=== PATIENT | male | born 1955 | race Caucasian/White ===

== ENCOUNTER 2017-01-29 12:07 | Outpatient (CLI) | payer MEDICARE, MEDICAID | END 2017-01-29 12:08 | disposition home or self-care (01) | DX: E11.9 Type 2 diabetes mellitus without complications (principal); D63.1 Anemia in chronic kidney disease; I10 Essential (primary) hypertension ==

== ENCOUNTER 2017-03-23 09:24 | Emergency (ER) | payer MEDICARE, MEDICAID ==
[2017-03-23 10:09] VITALS: BP 178/108
--- NOTE | 2017-03-23 10:18 | ED Physician Documentation ---
History of Present Illness - Stated complaint Stated Complaint: HIGH BP - Chief complaint Chief Complaint: General - Additonal information Additional information: hx from pt known HT on meds but he does not know the name of them or what time of day he takes them has not recently seen his PMD about BP has a new caregiver today and he/she noted high BP and wanted pt to come to the ER he statws this BP is normal for him he denies RAE CP Review of Systems Constitutional: denies: Fever Cardiac: denies: Chest pain / pressure Respiratory: denies: Dyspnea Neurologic: denies: Headache PD PAST MEDICAL HISTORY - Past Medical History Cardiovascular: Hypertension Respiratory: None, Shortness of breath Neuro: CVA, Peripheral neuropathy Endocrine/Autoimmune: Type 2 diabetes GI: GERD : Incontinence, Renal insuffiency HEENT: Other Psych: None Musculoskeletal: Hemiplegia, Gout Derm: None - Past Surgical History Past Surgical History: Yes General: Bowel surgery Cardiovascular: Other Neuro: Craniotomy HEENT: Tonsil/Adenoidectomy - Present Medications Home Medications: Ambulatory Orders Medication Instructions Recorded Confirmed Bupropion HCl [Bupropion HCl Sr] 150 mg PO BID 05/08/13 01/30/16 Metoprolol Tartrate [Lopressor] 50 mg PO BID 05/08/13 01/30/16 Ranitidine HCl 150 mg PO DAILY 05/08/13 01/30/16 traMADol [Ultram] 50 mg PO ONCE PRN 05/08/13 01/30/16 Citalopram [CeleXA] 20 mg PO DAILY 11/12/13 01/30/16 Furosemide [Lasix] 40 mg PO ONCE PRN 11/12/13 01/30/16 Allopurinol 100 mg PO DAILY 05/07/15 01/30/16 Calcium Polycarbophil [Fiber Tabs] 625 mg PO DAILY #30 tablet 05/07/15 01/30/16 Glipizide [Glipizide Xl] 10 mg PO DAILY 05/07/15 01/30/16 Nifedipine [Nifedipine Xl] 30 mg PO DAILY 05/07/15 01/30/16 Polyethylene Glycol 3350 [Miralax] 17 gm PO Q4H PRN #500 g 05/07/15 01/30/16 Potassium Bicarbonate 25 meq PO DAILY #10 tablet 05/07/15 01/30/16 [K-Effervescent] Bisacodyl Supp [Dulcolax Supp] 10 mg MA ONCE PRN #10 supp 05/09/15 01/30/16 Albuterol Sulfate [Proair Hfa 8.5 gm IH QID #1 hfa.aer.ad 12/25/15 01/30/16 Inhaler] Cetirizine [ZyrTEC] 10 mg PO DAILY #15 tablet 12/25/15 01/30/16 oxyCODONE/ACET 5/325 [Percocet 5 1 - 2 each PO Q6H PRN #20 tablet 03/31/16 mg/325 mg] Magnesium Oxide [Mag Ox] 400 mg PO DAILY #10 tablet 04/18/16 Cephalexin [Keflex] 500 mg PO QID #40 capsule 05/09/16 - Allergies Allergies/Adverse Reactions: Allergies Allergy/AdvReac Type Severity Reaction Status Date / Time Sulfa (Sulfonamide Allergy Mild Itching Verified 03/23/17 09:35 Antibiotics) egg Allergy Hives Verified 03/23/17 09:35 - Social History Does the pt smoke?: No Smoking Status: Never smoker Does the pt drink ETOH?: Yes Does the pt have substance abuse?: Yes - Immunizations Immunizations are current?: Yes - POLST Patient has POLST: No PD ED PE NORMAL - Vitals Vital signs reviewed: Yes - General General: Alert and oriented X 3 - Neck Neck: Supple, no meningeal sign - Cardiac Cardiac: RRR - Respiratory Respiratory: No respiratory distress, Clear bilaterally - Neuro Neuro: Alert and oriented X 3, Other (pre-existing L hemiplegia) Results - Vitals Vitals: Vital Signs - 24 hr 03/23/17 03/23/17 09:33 10:08 Temperature 36.8 C Heart Rate 69 Respiratory 16 Rate Blood Pressure 200/114 H 178/108 H O2 Saturation 99 Oxygen O2 Source [With Activity] Room air O2 Source Room air PD MEDICAL DECISION MAKING - ED course ED course: asymptomatic HTN with hx same rpt BP in ER improved no need for emergent intervention will dc to keep a log of BP and diff times of day and fup MD for further management Departure - Departure Disposition: 01 Home, Self Care Clinical Impression: HTN (hypertension) Qualifiers: Hypertension type: essential hypertension Qualified Code(s): I10 - Essential ( primary) hypertension Condition: Fair Instructions: ED Hypertension Conf Out Of Control Follow-Up: Gravatt,Jhonny H, MD [Primary Care Provider] - Comments: Keep a log of your blood pressures at different times of the day and follow up with your PMD to discuss medication management Please always bring a medication list or your medication bottles with you to your doctors appointments and hospital visits Return if worse (headache, chest pain, new numbness or weakness etc)
== END 2017-03-23 10:30 | disposition home or self-care (01) ==
LOC: ED 09:24
DX: I10 Essential (primary) hypertension (principal); Z86.73 Personal history of transient ischemic attack (TIA), and cerebral infarction without residual deficits; E11.42 Type 2 diabetes mellitus with diabetic polyneuropathy; M10.9 Gout, unspecified
CPT/HCPCS: 99283

== ENCOUNTER 2017-05-14 08:41 | Outpatient (CLI) | payer MEDICARE, MEDICAID ==
[2017-05-14 09:05] LABS: HCT - HEMATOCRIT 37.8 % (42.0-52.0); HGB - HEMOGLOBIN 12.6 g/dL (14.0-18.0); MEAN CORPUSCULAR HEMOGLOBIN 28.6 pg (27.0-31.0); MEAN CORPUSCULAR HGB CONC 33.3 g/dL (32.0-36.0); MEAN CORPUSCULAR VOLUME 85.7 fL (80.0-94.0); MEAN PLATELET VOLUME 8.6 fL (7.4-11.4); RED BLOOD COUNT 4.41 10^6/uL (4.70-6.10); RED CELL DISTRIBUTION WIDTH 14.3 % (12.0-15.0); WHITE BLOOD COUNT 6.8 x10^3/uL (4.8-10.8)
[2017-05-14 09:17] LABS: CREATININE 1.8 mg/dL (0.6-1.2); POTASSIUM 4.4 mmol/L (3.5-5.0)
[2017-05-14 09:20] LABS: PHOSPHORUS 4.2 mg/dL (2.5-4.6); URIC ACID 5.7 mg/dL (2.6-7.2)
[2017-05-14 09:45] LABS: HEMOGLOBIN A1C 0.66 g/dL
== END 2017-05-14 08:42 | disposition home or self-care (01) ==
LOC: LAB 08:41
PROVIDERS: ATTEND Family Medicine
DX: E11.9 Type 2 diabetes mellitus without complications (principal); D70.9 Neutropenia, unspecified; I10 Essential (primary) hypertension; N05.9 Unspecified nephritic syndrome with unspecified morphologic changes; M10.00 Idiopathic gout, unspecified site; E83.30 Disorder of phosphorus metabolism, unspecified; N25.81 Secondary hyperparathyroidism of renal origin
CPT/HCPCS: 36415; 80048; 83036; 83970; 84100; 84550

== ENCOUNTER 2017-06-22 09:10 | Emergency (ER) | payer MEDICARE, MEDICAID ==
[2017-06-22 09:23] VITALS: BP 171/96
--- NOTE | 2017-06-22 10:18 | ED Physician Documentation ---
PD HPI SKIN - Stated complaint Stated Complaint: BLISTER ON SKIN - Chief complaint Chief Complaint: Wound - History obtained from History obtained from: Patient, Caregiver - History of Present Illness Timing - onset: How many days ago (4) Timing - duration: Days (4) Timing - details: Gradual onset, Still present Location: Back Quality / character: Painful, Burning, Vesicular Associated symptoms: No: Fever, Myalgias, Joint pain, Headache, Facial swelling , Dyspnea, Abd pain, N/V/D, Urinary sx Similar symptoms before: Has not had sx before Recently seen: Not recently seen - Additional information Additional information: 61-year-old male with a history of CVA and type 2 diabetes has developed a painful area on the right flank area that is blistered and has kept him awake at night. Review of Systems Constitutional: denies: Fever Nose: reports: Congestion Throat: denies: Sore throat Cardiac: denies: Chest pain / pressure Respiratory: denies: Dyspnea, Cough GI: denies: Nausea, Vomiting Skin: reports: Rash, Lesions Musculoskeletal: reports: Back pain. denies: Neck pain, Extremity pain PD PAST MEDICAL HISTORY - Past Medical History Past Medical History: Yes Cardiovascular: Hypertension Respiratory: None, Shortness of breath Neuro: CVA, Peripheral neuropathy Endocrine/Autoimmune: Type 2 diabetes GI: GERD : Incontinence, Renal insuffiency HEENT: Other Psych: None Musculoskeletal: Hemiplegia, Gout Derm: None - Past Surgical History Past Surgical History: Yes General: Bowel surgery Cardiovascular: Other Neuro: Craniotomy HEENT: Tonsil/Adenoidectomy - Present Medications Home Medications: Ambulatory Orders Medication Instructions Recorded Confirmed Bupropion HCl [Bupropion HCl Sr] 150 mg PO BID 05/08/13 03/23/17 Metoprolol Tartrate [Lopressor] 50 mg PO BID 05/08/13 03/23/17 Ranitidine HCl 150 mg PO DAILY 05/08/13 03/23/17 Citalopram [CeleXA] 20 mg PO DAILY 11/12/13 03/23/17 Allopurinol 100 mg PO DAILY 05/07/15 03/23/17 Calcium Polycarbophil [Fiber Tabs] 625 mg PO DAILY #30 tablet 05/07/15 01/30/16 Glipizide [Glipizide Xl] 10 mg PO DAILY 05/07/15 03/23/17 Nifedipine [Nifedipine Xl] 60 mg PO DAILY 05/07/15 03/23/17 Polyethylene Glycol 3350 [Miralax] 17 gm PO Q4H PRN #500 g 05/07/15 01/30/16 Bisacodyl Supp [Dulcolax Supp] 10 mg [place] ONCE PRN #10 supp 05/09/15 01/30/16 Cetirizine [ZyrTEC] 10 mg PO DAILY #15 tablet 12/25/15 03/23/17 Magnesium Oxide [Mag Ox] 400 mg PO DAILY #10 tablet 04/18/16 Atorvastatin Calcium 20 mg PO DAILY 03/23/17 03/23/17 Lisinopril 10 mg PO DAILY 03/23/17 03/23/17 Oxybutynin Chloride 5 mg PO BID PRN 03/23/17 03/23/17 Acyclovir 800 mg PO ACHS #35 tablet 06/22/17 Oxycodone HCl/Acetaminophen 1 each PO Q6HR PRN #20 tablet 06/22/17 [Percocet 5-325 mg Tablet] - Allergies Allergies/Adverse Reactions: Allergies Allergy/AdvReac Type Severity Reaction Status Date / Time Sulfa (Sulfonamide Allergy Mild Itching Verified 03/23/17 09:35 Antibiotics) egg Allergy Hives Verified 03/23/17 09:35 - Social History Does the pt smoke?: No Smoking Status: Never smoker Does the pt drink ETOH?: Yes Does the pt have substance abuse?: Yes - Immunizations Immunizations are current?: Yes - POLST Patient has POLST: No PD ED PE NORMAL - Vitals Vital signs reviewed: Yes (hypertensive) - General General: No acute distress, Well developed/nourished - HEENT HEENT: Atraumatic - Respiratory Respiratory: No respiratory distress - Back Back: No CVA TTP, No spinal TTP - Derm Derm: Normal color, Warm and dry, Other (There are multiple vesiculations over the right back extending in a dermatome around to the front. They do not appear superinfected at this time. ) Results - Vitals Vitals: Vital Signs - 24 hr 06/22/17 09:19 Temperature 36.6 C Heart Rate 62 Respiratory 20 Rate Blood Pressure 171/96 H O2 Saturation 64 L Oxygen O2 Source [With Activity] Room air O2 Source Room air PD MEDICAL DECISION MAKING - ED course Complexity details: considered differential, d/w patient, d/w family ED course: 61-year-old male with a history of type 2 diabetes and CVA has developed blisters on his back consistent with acute zoster. Departure - Departure Disposition: 01 Home, Self Care Clinical Impression: Shingles rash Qualifiers: Herpes zoster complications: without complications Qualified Code(s): B02.9 - Zoster without complications Instructions: ED Shingles Follow-Up: Jhonny Kruse MD [Primary Care Provider] - Prescriptions: Oxycodone HCl/Acetaminophen [Percocet 5-325 mg Tablet] 1 each PO Q6HR PRN #20 tablet PRN Reason: Pain Acyclovir 800 mg PO ACHS #35 tablet
== END 2017-06-22 10:52 | disposition home or self-care (01) ==
LOC: ED 09:10
DX: B02.9 Zoster without complications (principal); I69.359 Hemiplegia and hemiparesis following cerebral infarction affecting unspecified side; I10 Essential (primary) hypertension; E11.42 Type 2 diabetes mellitus with diabetic polyneuropathy; Z79.84 Long term (current) use of oral hypoglycemic drugs; K21.9 Gastro-esophageal reflux disease without esophagitis; M10.9 Gout, unspecified
CPT/HCPCS: 99283

== ENCOUNTER 2017-07-09 09:54 | Emergency (ER) | payer MEDICARE, MEDICAID ==
[2017-07-09 10:17] VITALS: BP 168/93
--- NOTE | 2017-07-09 12:05 | ED Physician Documentation ---
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 and dec sensation also lymphedema and diabetes scratched his LLE and now has some abrasions which have gotten infected no fever otherwise well Review of Systems Constitutional: denies: Fever Respiratory: denies: Cough GI: denies: Vomiting, Diarrhea Skin: reports: Rash, Abrasion (s) Neurologic: reports: Focal weakness (from prior TBI), Numbness (from prior TBI) Immunocompromised: denies: Immunocompromised PD PAST MEDICAL HISTORY - Past Medical History Cardiovascular: Hypertension Respiratory: None, Shortness of breath Neuro: CVA, Peripheral neuropathy Endocrine/Autoimmune: Type 2 diabetes GI: GERD : Incontinence, Renal insuffiency HEENT: Other Psych: None Musculoskeletal: Hemiplegia, Gout Derm: None - Past Surgical History Past Surgical History: Yes General: Bowel surgery Cardiovascular: Other Neuro: Craniotomy HEENT: Tonsil/Adenoidectomy - Present Medications Home Medications: Ambulatory Orders Medication Instructions Recorded Confirmed Bupropion HCl [Bupropion HCl Sr] 150 mg PO BID 05/08/13 03/23/17 Metoprolol Tartrate [Lopressor] 50 mg PO BID 05/08/13 03/23/17 Ranitidine HCl 150 mg PO DAILY 05/08/13 03/23/17 Citalopram [CeleXA] 20 mg PO DAILY 11/12/13 03/23/17 Allopurinol 100 mg PO DAILY 05/07/15 03/23/17 Calcium Polycarbophil [Fiber Tabs] 625 mg PO DAILY #30 tablet 05/07/15 01/30/16 Glipizide [Glipizide Xl] 10 mg PO DAILY 05/07/15 03/23/17 Nifedipine [Nifedipine Xl] 60 mg PO DAILY 05/07/15 03/23/17 Polyethylene Glycol 3350 [Miralax] 17 gm PO Q4H PRN #500 g 05/07/15 01/30/16 Bisacodyl Supp [Dulcolax Supp] 10 mg [place] ONCE PRN #10 supp 05/09/15 01/30/16 Cetirizine [ZyrTEC] 10 mg PO DAILY #15 tablet 12/25/15 03/23/17 Magnesium Oxide [Mag Ox] 400 mg PO DAILY #10 tablet 04/18/16 Atorvastatin Calcium 20 mg PO DAILY 03/23/17 03/23/17 Lisinopril 10 mg PO DAILY 03/23/17 03/23/17 Oxybutynin Chloride 5 mg PO BID PRN 03/23/17 03/23/17 Acyclovir 800 mg PO ACHS #35 tablet 06/22/17 Oxycodone HCl/Acetaminophen 1 each PO Q6HR PRN #20 tablet 06/22/17 [Percocet 5-325 mg Tablet] Cephalexin [Keflex] 500 mg PO Q6H #28 capsule 07/09/17 - Allergies Allergies/Adverse Reactions: Allergies Allergy/AdvReac Type Severity Reaction Status Date / Time Sulfa (Sulfonamide Allergy Mild Itching Verified 03/23/17 09:35 Antibiotics) egg Allergy Hives Verified 03/23/17 09:35 - Social History Does the pt smoke?: No Smoking Status: Never smoker Does the pt drink ETOH?: Yes Does the pt have substance abuse?: Yes - Immunizations Immunizations are current?: Yes - POLST Patient has POLST: No PD ED PE NORMAL - Vitals Vital signs reviewed: Yes - General General: Alert and oriented X 3 - HEENT HEENT: Atraumatic - Neck Neck: Supple, no meningeal sign - Cardiac Cardiac: RRR - Respiratory Respiratory: No respiratory distress, Clear bilaterally - Extremities Extremities: Other (mallory LE edema, LLE with abrasion and surrounding cellulitis, no crepitus, no necrosis, no bullae, small serous dc whcih was vultures, + pedal pulse, motor nd sensation chronically impaired) Results - Vitals Vitals: Vital Signs - 24 hr 07/09/17 10:13 Temperature 37 C Heart Rate 58 L Respiratory 18 Rate Blood Pressure 168/93 H O2 Saturation 99 Oxygen O2 Source [With Activity] Room air O2 Source Room air PD MEDICAL DECISION MAKING - ED course ED course: no hx MRSA, baseline renal insuff, and allergic to sulfa - for now will start tx with keflex Departure - Departure Disposition: 01 Home, Self Care Clinical Impression: Cellulitis Qualifiers: Site of cellulitis: extremity Site of cellulitis of extremity: lower extremity Laterality: left Qualified Code(s): L03.116 - Cellulitis of left lower limb Condition: Good Instructions: ED Infec Skin Cellulitis Prescriptions: Cephalexin [Keflex] 500 mg PO Q6H #28 capsule Comments: Please come back to the ER tomorrow for a recheck. Your diabetes and lymphedema will make this infection more difficult to cure - if you do not get better with antibiotic pills you may need to be admitted for IV antibiotics And please get your blood pressure rechecked - it was high today
[2017-07-09] MEDS: CEPHALEXIN 250 MG CAPSULE PO STA (12:24)
[2017-07-09] MEDS ORDERED: CEPHALEXIN 250 MG CAPSULE PO ONE (12:26)
== END 2017-07-09 12:15 | disposition home or self-care (01) ==
LOC: ED 09:54
DX: S80.812A Abrasion, left lower leg, initial encounter (principal); L03.116 Cellulitis of left lower limb; X58.XXXA Exposure to other specified factors, initial encounter; E11.42 Type 2 diabetes mellitus with diabetic polyneuropathy; I10 Essential (primary) hypertension; K21.9 Gastro-esophageal reflux disease without esophagitis; M10.9 Gout, unspecified; I89.0 Lymphedema, not elsewhere classified; I69.354 Hemiplegia and hemiparesis following cerebral infarction affecting left non-dominant side
CPT/HCPCS: 87070; 87205; 99283; A9270

== ENCOUNTER 2017-07-11 08:57 | Emergency (ER) | payer MEDICARE, MEDICAID ==
[2017-07-11 09:10] VITALS: BP 135/86
--- NOTE | 2017-07-11 11:11 | ED Physician Documentation ---
History of Present Illness - Stated complaint Stated Complaint: LEG WOUND - Chief complaint Chief Complaint: Ext Problem - Additonal information Additional information: 61-year-old man diagnosed with cellulitis of the left lower extremity couple days ago placed on Keflex told to come back for wound check yesterday. He missed this appointment yesterday and was late in getting his antibiotics but is now currently taking antibiotics and believes the wound is doing better however he is returning as instructed. Review of systems: For pertinent positive and negatives in the review of systems please see the history of present illness, otherwise all other systems have been reviewed and are negative. Dragon disclaimer: Parts of this medical record were created using voice recognition technology. Because of the inherent limitations of this system, occasional same sounding word substitutions do occur and persist despite proofreading. Please read the document for context. Review of Systems Constitutional: denies: Fever, Chills, Myalgias PD PAST MEDICAL HISTORY - Past Medical History Cardiovascular: Hypertension Respiratory: None, Shortness of breath Neuro: CVA, Peripheral neuropathy Endocrine/Autoimmune: Type 2 diabetes GI: GERD : Incontinence, Renal insuffiency HEENT: Other Psych: None Musculoskeletal: Hemiplegia, Gout Derm: None - Past Surgical History Past Surgical History: Yes General: Bowel surgery Cardiovascular: Other Neuro: Craniotomy HEENT: Tonsil/Adenoidectomy - Present Medications Home Medications: Ambulatory Orders Medication Instructions Recorded Confirmed Bupropion HCl [Bupropion HCl Sr] 150 mg PO BID 05/08/13 07/11/17 Metoprolol Tartrate [Lopressor] 50 mg PO BID 05/08/13 07/11/17 Ranitidine HCl 150 mg PO DAILY 05/08/13 07/11/17 Citalopram [CeleXA] 20 mg PO DAILY 11/12/13 07/11/17 Allopurinol 100 mg PO DAILY 05/07/15 07/11/17 Calcium Polycarbophil [Fiber Tabs] 625 mg PO DAILY #30 tablet 05/07/15 07/11/17 Glipizide [Glipizide Xl] 10 mg PO DAILY 05/07/15 07/11/17 Nifedipine [Nifedipine Xl] 60 mg PO DAILY 05/07/15 07/11/17 Polyethylene Glycol 3350 [Miralax] 17 gm PO Q4H PRN #500 g 05/07/15 07/11/17 Bisacodyl Supp [Dulcolax Supp] 10 mg [place] ONCE PRN #10 supp 05/09/15 07/11/17 Cetirizine [ZyrTEC] 10 mg PO DAILY #15 tablet 12/25/15 07/11/17 Magnesium Oxide [Mag Ox] 400 mg PO DAILY #10 tablet 04/18/16 07/11/17 Atorvastatin Calcium 20 mg PO DAILY 03/23/17 07/11/17 Lisinopril 10 mg PO DAILY 03/23/17 07/11/17 Oxybutynin Chloride 5 mg PO BID PRN 03/23/17 07/11/17 Acyclovir 800 mg PO ACHS #35 tablet 06/22/17 07/11/17 Oxycodone HCl/Acetaminophen 1 each PO Q6HR PRN #20 tablet 06/22/17 07/11/17 [Percocet 5-325 mg Tablet] Cephalexin [Keflex] 500 mg PO Q6H #28 capsule 07/09/17 07/11/17 - Allergies Allergies/Adverse Reactions: Allergies Allergy/AdvReac Type Severity Reaction Status Date / Time Sulfa (Sulfonamide Allergy Mild Itching Verified 03/23/17 09:35 Antibiotics) egg Allergy Hives Verified 03/23/17 09:35 - Social History Does the pt smoke?: No Smoking Status: Never smoker Does the pt drink ETOH?: Yes Does the pt have substance abuse?: Yes - Immunizations Immunizations are current?: Yes - POLST Patient has POLST: No PD ED PE NORMAL - Vitals Vital signs reviewed: Yes - General General: Alert and oriented X 3, No acute distress, Well developed/nourished - Extremities Extremities: Other (Brawny edema left lower extremity. Mild erythema and a small wound present. No evidence of any significant cellulitis or abscess.) Results - Vitals Vitals: Vital Signs - 24 hr 07/11/17 09:01 Temperature 36.0 C L Heart Rate 51 L Respiratory 14 Rate Blood Pressure 135/86 H O2 Saturation 99 Oxygen O2 Source [With Activity] Room air O2 Source Room air PD MEDICAL DECISION MAKING - ED course Complexity details: reviewed old records, reviewed results, re-evaluated patient , d/w family ED course: The patient's cellulitis is minimal. He says it looks better. There is nothing concerning on my examination. I have asked him to continue the Keflex as previously prescribed. Disposition: To home Clinical impression: 1. Cellulitis left lower extremity-doing well Departure - Departure Disposition: Home, Self Care Clinical Impression: Cellulitis of leg without foot Instructions: ED Infec Skin Cellulitis
--- NOTE | 2017-07-11 22:16 | ED Physician Documentation ---
ED Addendum - Addendum Addendum: 07/11/17 22:15 pt returned for recheck as requested - chart accessed for follow up and educational purposes
== END 2017-07-11 11:11 | disposition home or self-care (01) ==
LOC: ED 08:57
DX: L03.116 Cellulitis of left lower limb (principal); G81.90 Hemiplegia, unspecified affecting unspecified side; M10.9 Gout, unspecified; I10 Essential (primary) hypertension; E11.42 Type 2 diabetes mellitus with diabetic polyneuropathy; Z86.73 Personal history of transient ischemic attack (TIA), and cerebral infarction without residual deficits
CPT/HCPCS: 99282; 99283

== ENCOUNTER 2017-08-27 08:49 | Outpatient (CLI) | payer MEDICARE, MEDICAID ==
[2017-08-27 09:28] LABS: CALCIUM 8.9 mg/dL (8.5-10.3); CREATININE 2.5 mg/dL (0.6-1.2)
[2017-08-27 09:51] LABS: HEMOGLOBIN A1C 0.72 g/dL
== END 2017-08-27 08:50 | disposition home or self-care (01) ==
LOC: LAB 08:49
PROVIDERS: ATTEND Family Medicine
DX: E11.9 Type 2 diabetes mellitus without complications (principal); I10 Essential (primary) hypertension
CPT/HCPCS: 36415; 80048; 83036

== ENCOUNTER 2017-08-28 11:47 | Outpatient (CLI) | payer MEDICARE, MEDICAID ==
[2017-08-28 12:14] LABS: CREATININE 2.5 mg/dL (0.6-1.2)
== END 2017-08-28 11:48 | disposition home or self-care (01) ==
LOC: LAB 11:47
PROVIDERS: ATTEND Internal Medicine Nephrology
DX: N05.9 Unspecified nephritic syndrome with unspecified morphologic changes (principal)
CPT/HCPCS: 36415; 82565

== ENCOUNTER 2017-09-18 15:53 | Outpatient (CLI) | payer MEDICARE, MEDICAID ==
[2017-09-18 17:00] LABS: CALCIUM 8.7 mg/dL (8.5-10.3); CREATININE 2.1 mg/dL (0.6-1.2); POTASSIUM 3.2 mmol/L (3.5-5.0)
== END 2017-09-18 15:54 | disposition home or self-care (01) ==
LOC: LAB 15:53
PROVIDERS: ATTEND Internal Medicine Nephrology
DX: N05.9 Unspecified nephritic syndrome with unspecified morphologic changes (principal)
CPT/HCPCS: 36415; 80048

== ENCOUNTER 2017-10-22 09:49 | Outpatient (CLI) | payer MEDICARE, MEDICAID ==
[2017-10-22 10:21] LABS: CALCIUM 9.4 mg/dL (8.5-10.3); CREATININE 2.4 mg/dL (0.6-1.2); POTASSIUM 3.9 mmol/L (3.5-5.0)
== END 2017-10-22 09:50 | disposition home or self-care (01) ==
LOC: LAB 09:49
PROVIDERS: ATTEND Internal Medicine Nephrology
DX: N05.9 Unspecified nephritic syndrome with unspecified morphologic changes (principal)
CPT/HCPCS: 36415; 80048

== ENCOUNTER 2017-12-16 08:24 | Outpatient (CLI) | payer MEDICARE, MEDICAID | END 2017-12-16 08:25 | disposition critical access hospital (66) | LOC: EMS 08:24 | PROVIDERS: ATTEND Surgery | DX: R40.20 Unspecified coma (principal); R73.09 Other abnormal glucose | CPT/HCPCS: A0425; A0429 ==

== ENCOUNTER 2017-12-16 08:25 | Emergency (ER) | payer OTHER ==
[2017-12-16] MEDS ORDERED: SODIUM CHLORIDE 0.9% 1,000 ML IV ONE (08:36)
--- NOTE | 2017-12-16 08:38 | ED Physician Documentation ---
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 Unable to obtain: Unresponsive PD PAST MEDICAL HISTORY - Present Medications Home Medications: Ambulatory Orders Medication Instructions Recorded Confirmed Bupropion HCl [Bupropion HCl Sr] 150 mg PO BID 05/08/13 07/11/17 Metoprolol Tartrate [Lopressor] 50 mg PO BID 05/08/13 07/11/17 raNITIdine HCl [Ranitidine HCl] 150 mg PO DAILY 05/08/13 07/11/17 Citalopram [CeleXA] 20 mg PO DAILY 11/12/13 07/11/17 Allopurinol 100 mg PO DAILY 05/07/15 07/11/17 Calcium Polycarbophil [Fiber Tabs] 625 mg PO DAILY #30 tablet 05/07/15 07/11/17 Glipizide [Glipizide Xl] 10 mg PO DAILY 05/07/15 07/11/17 Nifedipine [Nifedipine Xl] 60 mg PO DAILY 05/07/15 07/11/17 Polyethylene Glycol 3350 [Miralax] 17 gm PO Q4H PRN #500 g 05/07/15 07/11/17 Bisacodyl Supp [Dulcolax Supp] 10 mg SD ONCE PRN #10 supp 05/09/15 07/11/17 Cetirizine [ZyrTEC] 10 mg PO DAILY #15 tablet 12/25/15 07/11/17 Magnesium Oxide [Mag Ox] 400 mg PO DAILY #10 tablet 04/18/16 07/11/17 Atorvastatin Calcium 20 mg PO DAILY 03/23/17 07/11/17 Lisinopril 10 mg PO DAILY 03/23/17 07/11/17 Oxybutynin Chloride 5 mg PO BID PRN 03/23/17 07/11/17 Acyclovir 800 mg PO ACHS #35 tablet 06/22/17 07/11/17 Oxycodone HCl/Acetaminophen 1 each PO Q6HR PRN #20 tablet 06/22/17 07/11/17 [Percocet 5-325 mg Tablet] Cephalexin [Keflex] 500 mg PO Q6H #28 capsule 07/09/17 07/11/17 Allopurinol 100 mg PO 12/16/17 Atorvastatin Calcium 12/16/17 Bupropion HCl [Bupropion HCl Sr] 150 mg PO 12/16/17 Citalopram Hydrobromide 20 mg PO 12/16/17 [Citalopram HBr] Furosemide 20 mg PO 12/16/17 Glipizide [Glipizide ER] 5 mg PO 12/16/17 Metoprolol Succinate 50 mg PO 12/16/17 Nifedical Xl 12/16/17 12/16/17 Potassium Chloride 40 meq PO 12/16/17 12/16/17 Sitagliptin Phosphate [Januvia] 25 mg PO 12/16/17 Tramadol HCl [Ultram] 50 mg PO 12/16/17 raNITIdine [Zantac] 150 mg PO DAILY 12/16/17 12/16/17 - Allergies Allergies/Adverse Reactions: Allergies Allergy/AdvReac Type Severity Reaction Status Date / Time Sulfa (Sulfonamide Allergy Mild Itching Verified 12/16/17 09:26 Antibiotics) egg Allergy Hives Verified 12/16/17 09:26 PD ED PE NORMAL - Vitals Vital signs reviewed: Yes (tachy hypertensive afebrile) - General General: No: Alert and oriented X 3 (unresponsive to voice and pain, breathing spont) - HEENT HEENT: Other (pupils 7 slowly reactive to light, L gaze deviation). No: Atraumatic (skull defect R protestant c/w prior trauma or crani) - Neck Neck: No bony TTP (but altered) - Cardiac Cardiac: RRR (tachy) - Respiratory Respiratory: No respiratory distress, Clear bilaterally - Abdomen Abdomen: Soft, Non tender, Non distended - Derm Derm: Normal color - Extremities Extremities: No deformity - Neuro Neuro: Other (pt unresponsive to voice, withdraws both feet from pain, does not responf or move arms in response to pain, L arm seems contacted in to body). No : Alert and oriented X 3 Eye Opening: None Motor: Withdraws to Pain Verbal: None GCS Score: 6 Results - Vitals Vitals: Vital Signs - 24 hr 12/16/17 12/16/17 12/16/17 08:30 09:00 09:54 Temperature 36.4 C L Heart Rate 114 H 107 H 112 H Respiratory 24 25 H 24 Rate Blood Pressure 180/107 H 209/118 H 230/129 H O2 Saturation 96 100 98 12/16/17 12/16/17 12/16/17 10:05 10:10 10:16 Temperature Heart Rate 117 H 128 H 92 Respiratory 14 25 H Rate Blood Pressure 248/130 H 236/143 H O2 Saturation 100 100 12/16/17 12/16/17 12/16/17 10:25 10:30 10:35 Temperature Heart Rate 98 90 92 Respiratory 14 14 14 Rate Blood Pressure 116/73 107/78 108/77 O2 Saturation 100 100 100 12/16/17 12/16/17 10:40 10:45 Temperature Heart Rate 90 93 Respiratory 14 14 Rate Blood Pressure 131/94 H 145/96 H O2 Saturation 100 100 Oxygen O2 Source [] Room air O2 Source Mechanical ventilator - EKG (time done) 0840 Rate: Rate (enter#) Rhythm: Sinus tachycardia [place]: Normal Ischemia: Other (marked ST depression across all precordial leads except V1 with TWI lateral) Compare to prior EKG: Old EKG unavailable - Labs Labs: Laboratory Tests 12/16/17 12/16/17 12/16/17 08:40 08:40 08:40 WBC 25.5 H RBC 4.91 Hgb 14.2 Hct 42.8 MCV 87.2 MCH 28.9 MCHC 33.1 RDW 14.5 Plt Count 223 MPV 9.9 Neut # 23.6 H Lymph # 0.5 L Calloway # 1.3 H Eos # 0.0 Baso # 0.1 Absolute Nucleated RBC 0.02 Nucleated RBC % 0.1 Manual Slide Review Indicated RBC Morph Micro Appear 2+ ANISOCYTOSIS PT 11.9 INR 1.1 Sodium 134 L Potassium 3.6 Chloride 95 L Carbon Dioxide 18 L Anion Gap 21.0 H BUN 89 H* Creatinine 6.3 H Estimated GFR (MDRD) 9 L Glucose 400 H Lactic Acid Calcium 9.9 Total Bilirubin 0.7 AST 38 ALT 24 Alkaline Phosphatase 80 Ammonia CK-MB (CK-2) Troponin I Total Protein 8.0 Albumin 4.2 Globulin 3.8 Albumin/Globulin Ratio 1.1 Lipase 16 L TSH Urine Color Urine Clarity Urine pH Ur Specific Leupp Urine Protein Urine Glucose (UA) Urine Ketones Urine Occult Blood Urine Nitrite Urine Bilirubin Urine Urobilinogen Ur Leukocyte Esterase Urine RBC Urine WBC Ur Squamous Epith Cells Urine Bacteria Ur Microscopic Review Urine Culture Comments Salicylates < 6.0 Urine Opiates Screen Ur Oxycodone Screen Urine Methadone Screen Ur Propoxyphene Screen Acetaminophen < 10 L Ur Barbiturates Screen Ur Tricyclics Screen Ur Phencyclidine Scrn Ur Amphetamine Screen U Methamphetamines Scrn U Benzodiazepines Scrn Urine Cocaine Screen U Cannabinoids Screen Ethyl Alcohol < 5.0 Influenza A (Rapid) Influenza B (Rapid) Influenza Types A,B Ag 12/16/17 12/16/17 12/16/17 08:40 08:40 08:40 WBC RBC Hgb Hct MCV MCH MCHC RDW Plt Count MPV Neut # Lymph # Calloway # Eos # Baso # Absolute Nucleated RBC Nucleated RBC % Manual Slide Review RBC Morph Micro Appear PT INR Sodium Potassium Chloride Carbon Dioxide Anion Gap BUN Creatinine Estimated GFR (MDRD) Glucose Lactic Acid 2.6 H Calcium Total Bilirubin AST ALT Alkaline Phosphatase Ammonia CK-MB (CK-2) 21.2 H Troponin I 0.42 Total Protein Albumin Globulin Albumin/Globulin Ratio Lipase TSH 2.28 Urine Color Urine Clarity Urine pH Ur Specific Leupp Urine Protein Urine Glucose (UA) Urine Ketones Urine Occult Blood Urine Nitrite Urine Bilirubin Urine Urobilinogen Ur Leukocyte Esterase Urine RBC Urine WBC Ur Squamous Epith Cells Urine Bacteria Ur Microscopic Review Urine Culture Comments Salicylates Urine Opiates Screen Ur Oxycodone Screen Urine Methadone Screen Ur Propoxyphene Screen Acetaminophen Ur Barbiturates Screen Ur Tricyclics Screen Ur Phencyclidine Scrn Ur Amphetamine Screen U Methamphetamines Scrn U Benzodiazepines Scrn Urine Cocaine Screen U Cannabinoids Screen Ethyl Alcohol Influenza A (Rapid) Influenza B (Rapid) Influenza Types A,B Ag 12/16/17 12/16/17 12/16/17 08:45 08:45 09:16 WBC RBC Hgb Hct MCV MCH MCHC RDW Plt Count MPV Neut # Lymph # Calloway # Eos # Baso # Absolute Nucleated RBC Nucleated RBC % Manual Slide Review RBC Morph Micro Appear PT INR Sodium Potassium Chloride Carbon Dioxide Anion Gap BUN Creatinine Estimated GFR (MDRD) Glucose Lactic Acid Calcium Total Bilirubin AST ALT Alkaline Phosphatase Ammonia 12.2 CK-MB (CK-2) Troponin I Total Protein Albumin Globulin Albumin/Globulin Ratio Lipase TSH Urine Color BROWN Urine Clarity CLOUDY Urine pH 7.0 Ur Specific Leupp 1.020 Urine Protein >=300 Urine Glucose (UA) 100 H Urine Ketones NEGATIVE Urine Occult Blood LARGE H Urine Nitrite NEGATIVE Urine Bilirubin NEGATIVE Urine Urobilinogen 0.2 (NORMAL) Ur Leukocyte Esterase NEGATIVE Urine RBC TNTC H Urine WBC 0-3 Ur Squamous Epith Cells NONE SEEN Urine Bacteria Moderate H Ur Microscopic Review INDICATED Urine Culture Comments INDICATED Salicylates Urine Opiates Screen NEGATIVE Ur Oxycodone Screen NEGATIVE Urine Methadone Screen NEGATIVE Ur Propoxyphene Screen NEGATIVE Acetaminophen Ur Barbiturates Screen NEGATIVE Ur Tricyclics Screen NEGATIVE Ur Phencyclidine Scrn NEGATIVE Ur Amphetamine Screen NEGATIVE U Methamphetamines Scrn NEGATIVE U Benzodiazepines Scrn NEGATIVE Urine Cocaine Screen NEGATIVE U Cannabinoids Screen NEGATIVE Ethyl Alcohol Influenza A (Rapid) Negative Influenza B (Rapid) Negative Influenza Types A,B Ag - - Rads (name of study) CTH Radiology: See rad report (R basal ganglia and caudate parenchymal hemorrhage with extensive intraventricular extent, no sig shift or herniation noted) CT CS Radiology: See rad report (no acute fx dislocation) CT AP Radiology: See rad report (no free air, diffuse marked distension of colon without evidence of obstrutcion, marked bladder distension with hydro) CXR Radiology: See rad report (ET in place, NG does not look deep enough - will advance) Procedures - Intubation Provider: Emergency physician Medications: Etomidate, Succinylcholine Blade: Seven Tube: Size-enter number (7.5), Cuffed Route: Oral Confirmation: Direct visualization, Bilateral breath sounds, No abdominal breath sound, End tidal CO2, Pulse ox, Chest xray Complications: No compications PD MEDICAL DECISION MAKING - ED course ED course: large bleed on CT POLST states full code intubated with RSI will transfer to [facility] spoke to EMP Dr Solares who accepts and rec keppra 1 g, contol BP, mannitol if herniation MOP arrives pt has prior spont bleed txed at [facility] was 2/2 uncontrolled BP and DM also he is a drinker BP continues to be high - gave labetolol for BP of >230/129 - single dose dropped BP precipitously -no further doses to be given vec and versed for sedation - propofol would be nice as would dec BP too but allergic to eggs UA + bacteria but no WBC leuk est or nitrates so unlikely UTI cx will be run also in renal failure - HTN and DM contributed but think acute insult is urinary retention with hydro - dumont in now ischemic EKG, borderline trop and CKMB - likely 2/2 ICH and renal failure respectively though could have been hypoxic and had true cardiac ischemia - will need further eval but ICH is most imminently pressing issue hugely dilated colon on xray and CT - etiology unclear - MOP states prior bowel resection at [facility] and perhaps not new ALNW had to turn back 2/2 weather so stat ALS mother updated with all available results and plan to transfer to [facility] - Critical Care Time(min): 45 Time Includes: Direct patient care, Review records, Reassess patient, Document care, Coordinate care, Medical consult, Family consult for tx dec, See progress note Data interpretation: See progress note Procedures included in critical care time: Gastric intubation, Ventilator mgmt, See progress note Procedures excluded from critical care time: Intubation Departure - Departure Disposition: 02 Transfer Acute Care Hosp Clinical Impression: Alcohol abuse, Abnormal EKG ICH (intracerebral hemorrhage) Qualifiers: Intracerebral hemorrhage etiology: nontraumatic Cerebral hemorrhage location: unspecified cerebral location Laterality: right Qualified Code(s): I61.9 - Nontraumatic intracerebral hemorrhage, unspecified Diabetes Qualifiers: Diabetes mellitus type: other specified (including DADA) Diabetes mellitus complication status: with unspecified complications Diabetes mellitus jail insulin use: unspecified intermodal dispatcher insulin use status Qualified Code(s): E13.8 - Other specified diabetes mellitus with unspecified complications Renal failure Qualifiers: Renal failure chronicity: unspecified chronicity Qualified Code(s): N19 - Unspecified kidney failure Condition: Serious Discharge Date/Time: 12/16/17 11:39
[2017-12-16 08:57] LABS: MUDS CUTOFF CONCENTRATIONS CUTOFF CONC BELOW:
[2017-12-16 09:00] LABS: BASOPHILS # (AUTO) 0.1 10^3/uL (0.0-0.1); BASOPHILS % (AUTO) 0.2 %; HGB - HEMOGLOBIN 14.2 g/dL (14.0-18.0); LYMPHOCYTES # (AUTO) 0.5 10^3/uL (1.5-3.5); LYMPHOCYTES % (AUTO) 1.8 %; MEAN CORPUSCULAR HEMOGLOBIN 28.9 pg (27.0-31.0); MEAN CORPUSCULAR HGB CONC 33.1 g/dL (32.0-36.0); MEAN CORPUSCULAR VOLUME 87.2 fL (80.0-94.0); MEAN PLATELET VOLUME 9.9 fL (7.4-11.4); MONOCYTES # (AUTO) 1.3 10^3/uL (0.0-1.0); MONOCYTES % (AUTO) 5.2 %; NEUTROPHILS # (AUTO) 23.6 10^3/uL (1.5-6.6); NEUTROPHILS % (AUTO) 92.8 %; PLT - PLATELET COUNT 223 10^3/uL (130-450); RED BLOOD COUNT 4.91 10^6/uL (4.70-6.10); RED CELL DISTRIBUTION WIDTH 14.5 % (12.0-15.0); WHITE BLOOD COUNT 25.5 x10^3/uL (4.8-10.8)
[2017-12-16 09:06] LABS: BILIRUBIN,URINE NEGATIVE (NEGATIVE); GLUCOSE, URINE (UA) 100 mg/dL (NEGATIVE); KETONES,URINE (UA) NEGATIVE (NEGATIVE); LEUKOCYTE ESTERASE, URINE NEGATIVE (NEGATIVE); NITRITE,URINE NEGATIVE (NEGATIVE); OCCULT BLOOD,URINE LARGE (NEGATIVE); PROTEIN,URINE >=300 mg/dL (NEGATIVE); UROBILINOGEN,URINE 0.2 (NORMAL) E.U./dL (NORMAL)
--- NOTE | 2017-12-16 09:07 | XRAY Report ---
EXAM: CHEST RADIOGRAPHY EXAM DATE: 12/16/2017 08:56 AM. CLINICAL HISTORY: Altered mental status. Unresponsive. COMPARISON: None. TECHNIQUE: 1 view. FINDINGS: Lungs/Pleura: Lung volumes are decreased. No pneumothorax. No vascular congestion. Mediastinum: Cardiomegaly. Mild aortic tortuosity. Other: Diffuse gaseous distention of bowel in the upper abdomen. IMPRESSION: 1. Cardiomegaly. 2. Diffuse gaseous distention of bowel in the upper abdomen. [facility] Referring Provider Line: [phone] SITE ID: [id number]
[2017-12-16 09:16] LABS: INR 1.1 (0.8-1.2); PT - PROTHROMBIN TIME 11.9 secs (9.9-12.6)
[2017-12-16] MEDS ORDERED: ETOMIDATE 40 MG/20 ML VIAL IVP STA (09:43)
[2017-12-16] MEDS ORDERED: SUCCINYLCHOLINE 200 MG/10 ML VIAL IVP STA (09:43)
[2017-12-16 09:55] LABS: AMPHETAMINE SCREEN,URINE NEGATIVE (NEGATIVE); BENZODIAZEPINES SCREEN, URINE NEGATIVE (NEGATIVE); CLARITY,URINE CLOUDY (CLEAR); COCAINE SCREEN URINE NEGATIVE (NEGATIVE); METHADONE SCREEN, URINE NEGATIVE (NEGATIVE); METHAMPHETAMINES SCREEN, URINE NEGATIVE (NEGATIVE); OPIATE SCREEN, URINE NEGATIVE (NEGATIVE); OXYCODONE SCREEN, URINE NEGATIVE (NEGATIVE); PROPOXYPHENE SCREEN, URINE NEGATIVE (NEGATIVE); TRICYCLIC ANTIDEPRESSANT,URINE NEGATIVE (NEGATIVE)
[2017-12-16 10:06] LABS: BACTERIA,URINE Moderate /HPF (None Seen); RBC,URINE TNTC /HPF (0-5); SQUAMOUS EPITHELIAL CELL,UR NONE SEEN (<= Few)
--- NOTE | 2017-12-16 10:07 | CT Report ---
REVISED: THIS REPORT WAS ORIGINALLY SIGNED ON 12/16/2017 @ 1007. REPORT MOVED TO CORRECT ACCOUNT ON 12/16/2017 @ 1355. EXAM: CT HEAD EXAM DATE: 12/16/2017 09:40 AM. CLINICAL HISTORY: Altered mental status. Unresponsive. COMPARISON: 05/08/2013. TECHNIQUE: Multiaxial CT images were obtained from the foramen magnum to the vertex. Reformats: Coronal. IV contrast: None. In accordance with CT protocol optimization, one or more of the following dose reduction techniques were utilized for this exam: automated exposure control, adjustment of mA and/or KV based on patient size, or use of iterative reconstructive technique. FINDINGS: Parenchyma: Parenchymal volume loss with periventricular regions of low attenuation. There is a hemorrhage within the right basal ganglia and caudate with extensive intraventricular extent both in the lateral ventricles as well as the third and fourth ventricles. Small volume of subarachnoid blood product may also be present and no midline shift. Extraaxial Spaces: Mildly prominent No subdural or epidural collections identified. Ventricles: Ventricles are enlarged compared to 05/08/2013 and contain extensive volume of blood products in the lateral ventricles as well as third and fourth ventricles. Sinuses and Orbits: Fluid level is present within the right maxillary sinus. Remainder of the paranasal sinuses and mastoid air cells are clear. Bones: No acute fracture. Changes are seen from right frontal, parietal and temporal craniotomy. Other: Globes and orbits are unremarkable. IMPRESSION: 1. Right basal ganglia and caudate parenchymal hemorrhage with extensive intraventricular extent. Increase in size of lateral ventricles compared to . Findings discussed with Sri isaacs nurse in the emergency room at 1002 hrs. On 12/16/[address] Ibarra is currently intubating the patient. [facility] Referring Provider Line: [phone] SITE ID: [id number]
[2017-12-16] MEDS ORDERED: MIDAZOLAM 2 MG/2 ML VIAL IVP STA ×2 (10:09→11:26)
[2017-12-16] MEDS ORDERED: LABETALOL 20 MG/4 ML SYRINGE IVP STA (10:09)
[2017-12-16] MEDS ORDERED: levETIRAcetam INJ 1,000 MG in SODIUM CHLORIDE 0.9% 100ML 100 ML IV STA (10:09)
--- NOTE | 2017-12-16 10:11 | CT Report ---
REVISED: THIS REPORT WAS ORIGINALLY SIGNED ON 12/16/2017 @ 1011. REPORT MOVED TO CORRECT ACCOUNT ON 12/16/2017 @ 1358. EXAM: CT CERVICAL SPINE WITHOUT CONTRAST DATE: 12/16/2017 09:53 AM. HISTORY: Altered mental status. Unresponsive. COMPARISONS: 05/08/2013. TECHNIQUE: Thin-section axial images were acquired of the cervical spine without contrast. Post-processing: Coronal and sagittal reformats. Other: None. In accordance with CT protocol optimization, one or more of the following dose reduction techniques were utilized for this exam: automated exposure control, adjustment of mA and/or KV based on patient size, or use of iterative reconstructive technique. FINDINGS: Alignment: No scoliosis. No spondylolisthesis. Bones: No acute fracture. Degenerative osteophyte formation. Interspace Levels/Facets: C1-C2: Degenerative changes of the anterior arch of C1 and the dens. C2-C3: Disk space narrowing. Uncovertebral hypertrophy. Facet arthropathy. C3-C4: Disk space narrowing. Broad-based disk osteophyte complex and uncovertebral hypertrophy. Facet arthropathy. Mild central canal narrowing. Moderate to severe bilateral neural foraminal narrowing. C4-C5: Disk space narrowing. Osteophyte formation. Broad-based disk osteophyte complex. Uncovertebral hypertrophy. Facet arthropathy. Moderate to severe bilateral neural foraminal narrowing. C5-C6: Disk space narrowing. Osteophyte formation. Broad-based disk osteophyte complex. Facet arthropathy. [id number] bilateral neural foraminal narrowing. C6-C7: Disk space narrowing. Disk osteophyte complex and facet arthropathy. Mild bilateral neural foraminal narrowing. C7-T1: Facet arthropathy. Musculature: Normal. No fatty atrophy. Other: The paravertebral and prevertebral soft tissues are unremarkable. Mucus/ fluid is present layering in the posterior pharynx. Otherwise airways are clear. Intraventricular hemorrhage is seen in the right lateral ventricle and fourth ventricle. Skull base is unremarkable. Visualized thyroid gland is unremarkable. No enlarged cervical lymph nodes. Lung apices are clear. IMPRESSION: 1. No acute cervical spine abnormalities are identified. 2. Degenerative changes of the cervical spine. 3. Intraventricular hemorrhage better visualized on the same day head CT. [facility] Referring Provider Line: [phone] SITE ID: [id number]
[2017-12-16] MEDS ORDERED: MIDAZOLAM 2 MG/2 ML VIAL ONE (10:13)
[2017-12-16] MEDS ORDERED: VECURONIUM 10 MG VIAL IVP STA (10:16)
[2017-12-16 10:18] LABS: ALBUMIN 4.2 g/dL (3.2-5.5); ALBUMIN/GLOBULIN RATIO 1.1 (1.0-2.2); ALKALINE PHOSPHATASE 80 IU/L (42-121); ALT ALANINE AMINOTRANSFERASE 24 IU/L (10-60); AST ASPARTATE AMINOTRANSFERASE 38 IU/L (10-42); BILIRUBIN,TOTAL 0.7 mg/dL (0.2-1.0); CALCIUM 9.9 mg/dL (8.5-10.3); CARBON DIOXIDE - CO2 18 mmol/L (21-32); CHLORIDE 95 mmol/L (101-111); CREATININE 6.3 mg/dL (0.6-1.2); GFR - MDRD 9 (>89); GLUCOSE 400 mg/dL (70-100); LIPASE 16 U/L (22-51); SALICYLATE < 6.0 mg/dL; SODIUM 134 mmol/L (135-145)
[2017-12-16 10:23] LABS: ACETAMINOPHEN < 10 ug/mL (10-30)
[2017-12-16 10:24] LABS: BUN - BLOOD UREA NITROGEN 89 mg/dL (6-20)
[2017-12-16 10:25] LABS: RBC MORPHOLOGY (MULTIPLE) 2+ ANISOCYTOSIS (NORMAL)
[2017-12-16] MEDS ORDERED: VECURONIUM 10 MG VIAL ONE (10:25)
[2017-12-16] MEDS ORDERED: WATER FOR INJECTION,STERILE 0 ML ONE (10:28)
--- NOTE | 2017-12-16 10:33 | CT Report ---
REVISED: THIS REPORT WAS ORIGINALLY SIGNED ON 12/16/2017 @ 1033. REPORT MOVED TO CORRECT ACCOUNT ON 12/16/2017 @ 1401. EXAM: CT ABDOMEN AND PELVIS EXAM DATE: 12/16/2017 09:53 AM. CLINICAL HISTORY: Found down, unresponsive. Possible free air on chest x-ray. COMPARISONS: 05/12/2015. 06/22/2015. TECHNIQUE: Routine helical CT imaging was performed through the abdomen and pelvis. IV contrast: None. Enteric contrast: No. Reconstructions: Coronal and sagittal. In accordance with CT protocol optimization, one or more of the following dose reduction techniques were utilized for this exam: automated exposure control, adjustment of mA and/or KV based on patient size, or use of iterative reconstructive technique. FINDINGS: Lung Bases: Right basilar scar/atelectasis. Heart size is normal. Liver: Unenhanced images of the liver are unremarkable. Gallbladder/Bile Ducts: Unenhanced images of the bladder are unremarkable. Spleen: Normal. Pancreas: Volume loss. No peripancreatic edema. Adrenal Glands: Normal. Kidneys: Bilateral perinephric stranding. [id number] bilateral ureteral prominence and mild bilateral hydronephrosis. No calculi. Peritoneal Cavity/Bowel: Stomach is mildly distended and unremarkable. No small bowel obstruction. Diffuse marked gaseous distention of the colon visibly portions of the mid colon as well as portions of the sigmoid colon. No free air. No portal venous gas or pneumatosis. The appendix is well visualized and normal. Fatty umbilical hernia. Pelvic Organs: Urinary bladder is moderate to markedly distended. No pelvic free fluid. No pelvic adenopathy. Bilaterally fatty inguinal hernias. Vasculature: Atherosclerotic calcified plaque. No aneurysm Bones: Degenerative changes of the lower thoracic and lumbar spine and both hip joints. No acute osseous abnormalities. Other: None. IMPRESSION: 1. No free air. 2. Diffuse marked gaseous distention of portions of the colon. No evidence of bowel obstruction. 3. Mild bilateral hydronephrosis with moderate to marked urinary bladder distention. [facility] Referring Provider Line: [phone] SITE ID: [id number]
--- NOTE | 2017-12-16 10:36 | XRAY Preliminary Report ---
REVISED: THIS REPORT WAS ORIGINALLY SIGNED ON 12/16/2017. REPORT MOVED TO CORRECT ACCOUNT ON 12/16/2017 @ 1405. Exam: XR CHEST 1 VIEW X-RAY IMPRESSION: 1. Endotracheal tube tip 3.2 cm above the dai. 2. Nasogastric tube extends to at least the GE junction, with the distal end not included. 3. Mediastinal prominence may be due to the supine position and technique. Aortic ectasia or other process is not excluded on this exam and if further evaluation were indicated, follow-up standard views of the chest would be recommended, versus CT imaging. [facility] SITE ID: [id number]
--- NOTE | 2017-12-16 10:36 | XRAY Report ---
* REVISED: THIS REPORT WAS ORIGINALLY SIGNED ON 12/16/2017 @ 1036. REPORT MOVED TO CORRECT ACCOUNT ON 12/16/2016 @ 1408. EXAM: CHEST RADIOGRAPHY EXAM DATE: 12/16/2017 10:24 AM. CLINICAL HISTORY: Intubation. COMPARISON: 2 view chest 12/25/2015. TECHNIQUE: 1 supine view. FINDINGS: Lungs/Pleura: Interval diminished lung volumes. No evidence of pulmonary infiltrate, pleural effusion or pneumothorax. However, the lateral right lower lung is not fully included. Mediastinum: Normal heart size. New mediastinal prominence may be secondary to the portable supine technique and the limited lung volumes. However, aortic ectasia/aneurysm or other process cannot definitely be excluded on this single view. Other: Endotracheal tube tip is 3.2 cm above the dai. Nasogastric tube is visualized to near the level of GE junction. The exam does not image below that level. IMPRESSION: 1. Endotracheal tube tip 3.2 cm above the dai. 2. Nasogastric tube extends to at least the GE junction, with the distal end not included. 3. Mediastinal prominence may be due to the supine position and technique. Aortic ectasia or other process is not excluded on this exam and if further evaluation were indicated, follow-up standard views of the chest would be recommended, versus CT imaging. [facility] Referring Provider Line: [phone] SITE ID: [id number]
[2017-12-16 10:45] VITALS: BP 145/96
[2017-12-16 10:46] LABS: CREATINE KINASE MB 21.2 ng/mL (0.6-6.3); TROPONIN I 0.42 ng/mL (<0.49)
== END 2017-12-16 11:39 | disposition short-term general hospital (02) ==
LOC: EDUNIT# → EDBD → ED 08:25 → EDUNIT# 08:25 → ED 11:39
DX: F10.10 Alcohol abuse, uncomplicated (principal); R00.0 Tachycardia, unspecified; I61.9 Nontraumatic intracerebral hemorrhage, unspecified; I13.10 Hypertensive heart and chronic kidney disease without heart failure, with stage 1 through stage 4 chronic kidney disease, or unspecified chronic kidney disease; E11.22 Type 2 diabetes mellitus with diabetic chronic kidney disease; N18.9 Chronic kidney disease, unspecified; Z79.4 Long term (current) use of insulin
CPT/HCPCS: 31500; 36415; 51701; 51702; 70450; 71045; 72125; 74176; 80053; 80306; 80307; 80320; 80329; 81001; 81003; 82140; 82553; 83605; 83690; 84443; 84484; 85025; 85610; 87040; 87086; 87275; 87276; 93005; 94770; 96361; 96374; 96375; 96376; 99285; 99291

== ENCOUNTER 2017-12-16 11:44 | Outpatient (CLI) | payer OTHER | END 2017-12-16 11:45 | disposition short-term general hospital (02) | LOC: EMS 11:44 | PROVIDERS: ATTEND Surgery | DX: I61.9 Nontraumatic intracerebral hemorrhage, unspecified (principal); N19 Unspecified kidney failure | CPT/HCPCS: A0425; A0427 ==